=== PATIENT | female | born 1940 | race Caucasian/White ===

== ENCOUNTER 2018-07-10 12:36 | Observation (INO) | payer OTHER ==
--- NOTE | 2018-07-10 13:12 | CPEKG ---
Test Reason : OPEN Blood Pressure : / mmHG Vent. Rate : 068 BPM Atrial Rate : 069 BPM P-R Int : 185 ms QRS Dur : 081 ms QT Int : 399 ms P-R-T Axes : 044 012 030 degrees QTc Int : 425 ms Sinus rhythm Probable left atrial enlargement Confirmed by Prashant Reddy ([id number]) on 07/10/2018 1:11:46 PM Referred By: Confirmed By:Prashant Reddy
--- NOTE | 2018-07-10 13:14 | EDPHY ---
H & P Time Seen by Provider: 07/10/18 12:56 HPI/ROS: CHIEF COMPLAINT: Chest and arm heaviness HISTORY OF PRESENT ILLNESS: Patient has no previous history of venous thromboembolism or coronary disease. She had symptoms a day and half ago while she was walking around the house which lasted 5 min. This morning 1:30 a.m. She had recurrent symptoms and took an aspirin and went to sleep. Today she has had some on and off feeling of"indigestion"which comes and goes. At 1:30 a.m. This morning on the day before yesterday she had which she describes as heaviness in her arms and chest which made her feel"weak and panicky."Maybe a little bit of shortness of breath but no nausea and no cough. No leg swelling. Symptoms were mild in the happened and are currently not present. Today they came and went several times but never lasted more than 5 min. Not pleuritic and not definitely exertional. 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 No leg swelling. Skin: no rash Neuro: no headache Constitutional: no fever : no urinary symptoms A comprehensive 10 point review of systems is otherwise negative aside from elements mentioned in the history of present illness. PAST MEDICAL HISTORY: Negative for diabetes or hypertension. She says her" good cholesterol is high"but was not advise to take any statins by her primary care physician. Breast cancer with partial mastectomy, appendectomy, tonsillectomy. Cholesterol 228 on previous labs with elevated LDL. Family history: Negative for venous thromboembolism or coronary disease. Social history: Nonsmoker. No recent travel or immobilization. General Appearance: Alert and conversant, cooperative. Eyes: No scleral icterus. ENT, Mouth: Normal mucous membranes. Respiratory: Normal respiratory effort, breath sounds equal, lungs are clear to auscultation. Cardiovascular: Regular rate and rhythm. Gastrointestinal: Abdomen is soft and non tender. Neurological: Alert, face symmetric, normal motor and sensory in extremities. Skin: Warm and dry, no rashes. Musculoskeletal: No peripheral edema. No calf tenderness. Psychiatric: Not agitated. Emergency Department course/MDM: EKG shows no acute ischemic changes. Plan for D-dimer chest x-ray troponin. 1419: Results discussed, heart score for including 1 for history, 1 for risk factors, 2 for age. D-dimer is less than 0.1 times age, low risk for pulmonary embolism. Ilan 1419. Admit for risk stratification, patient agreeable. Had aspirin today at 1:30 a.m., not given in emergency department. Smoking Status: Never smoked Constitutional: Initial Vital Signs Temperature (C) 37.1 C 07/10/18 12:41 Heart Rate 81 07/10/18 12:41 Respiratory Rate 16 07/10/18 12:41 Blood Pressure 101/56 L 07/10/18 12:41 O2 Sat (%) 93 07/10/18 12:41 O2 Delivery Mode Room Air Allergies/Adverse Reactions: amoxicillin [From Augmentin] Allergy (Verified 07/10/18 12:40) ciprofloxacin [From Cipro] Allergy (Verified 07/10/18 12:40) clavulanic acid [From Augmentin] Allergy (Verified 07/10/18 12:40) codeine Allergy (Verified 07/10/18 12:40) sulfamethoxazole [From Bactrim] Allergy (Verified 07/10/18 12:40) trimethoprim [From Bactrim] Allergy (Verified 07/10/18 12:40) Home Medications: Medication Instructions Recorded Methenamine Mandel[place] 07/10/18 Ultracet Tablet 07/10/18 Medical Decision Making - Diagnostics EKG Interpretation: 12-lead EKG interpreted by me; official reading is in computer system. My interpretation is sinus rhythm rate 68 with left atrial enlargement and no acute ischemic changes. Imaging Results: Imaging Impressions Chest X-Ray 07/10/18 13:10 Impression: No acute findings in the chest. Differential Diagnosis: Differential diagnosis considered for chest pain including but not limited to myocardial ischemia, aortic dissection, pericarditis, pulmonary embolus, chest wall pain, pleural inflammation and pulmonary infectious causes. - Data Points Laboratory Results: Laboratory Results 07/10/18 13:32 07/10/18 13:32 07/10/18 07/10/18 07/10/18 13:37 13:32 13:32 WBC RBC Hgb Hct MCV MCH MCHC RDW Plt Count MPV Neut % (Auto) Lymph % (Auto) [place] % (Auto) Eos % (Auto) Baso % (Auto) Nucleat RBC Rel Count Absolute Neuts (auto) Absolute Lymphs (auto) Absolute Monos (auto) Absolute Eos (auto) Absolute Basos (auto) Absolute Nucleated RBC Immature Gran % Immature Gran # D-Dimer 0.54 ug/mLFEU H ug/mLFEU (0.00-0.50) Sodium 138 mEq/L mEq/L (135-145) Potassium 4.6 mEq/L mEq/L (3.3-5.0) Chloride 106 mEq/L mEq/L (97-110) Carbon Dioxide 25 mEq/l mEq/l (22-31) Anion Gap 7 mEq/L L mEq/L (8-16) BUN 23 mg/dL mg/dL (7-23) Creatinine 0.8 mg/dL mg/dL (0.6-1.0) Estimated GFR > 60 Glucose 108 mg/dL H mg/dL (70-100) Calcium 9.4 mg/dL mg/dL (8.5-10.4) POC Troponin I 0.02 ng/mL ng/mL (0.00-0.08) 07/10/18 13:32 WBC 7.04 10^3/uL 10^3/uL (3.80-9.50) RBC 4.29 10^6/uL 10^6/uL (4.18-5.33) Hgb 13.2 g/dL g/dL (12.6-16.3) Hct 39.3 % % (38.0-47.0) MCV 91.6 fL fL (81.5-99.8) MCH 30.8 pg pg (27.9-34.1) MCHC 33.6 g/dL g/dL (32.4-36.7) RDW 12.9 % % (11.5-15.2) Plt Count 142 10^3/uL L 10^3/uL (150-400) MPV 12.0 fL H fL (8.7-11.7) Neut % (Auto) 73.9 % % (39.3-74.2) Lymph % (Auto) 18.3 % % (15.0-45.0) [place] % (Auto) 6.4 % % (4.5-13.0) Eos % (Auto) 0.6 % % (0.6-7.6) Baso % (Auto) 0.4 % % (0.3-1.7) Nucleat RBC Rel Count 0.0 % % (0.0-0.2) Absolute Neuts (auto) 5.20 10^3/uL 10^3/uL (1.70-6.50) Absolute Lymphs (auto) 1.29 10^3/uL 10^3/uL (1.00-3.00) Absolute Monos (auto) 0.45 10^3/uL 10^3/uL (0.30-0.80) Absolute Eos (auto) 0.04 10^3/uL 10^3/uL (0.03-0.40) Absolute Basos (auto) 0.03 10^3/uL 10^3/uL (0.02-0.10) Absolute Nucleated RBC 0.00 10^3/uL 10^3/uL (0-0.01) Immature Gran % 0.4 % % (0.0-1.1) Immature Gran # 0.03 10^3/uL 10^3/uL (0.00-0.10) D-Dimer Sodium Potassium Chloride Carbon Dioxide Anion Gap BUN Creatinine Estimated GFR Glucose Calcium POC Troponin I Point of Care Test Results: Chemistry 07/10/18 13:37 POC Troponin I 0.02 ng/mL ng/mL (0.00-0.08) Departure - Departure Disposition: [facility] Inpatient Acute Clinical Impression: Chest pain Condition: Good Referrals: hCelsey Pratt MD [Primary Care Provider] - As per Instructions
[2018-07-10 13:44] LABS: PLATELET COUNT 142 10^3/uL (150-400)
[2018-07-10] MEDS ORDERED: ONDANSETRON DISINTEGRATING 4 MG TAB PO PRN (14:38)
[2018-07-10] MEDS ORDERED: ONDANSETRON 4 MG/2 ML VIAL IVP PRN (14:38)
[2018-07-10] MEDS ORDERED: ACETAMINOPHEN 325 MG TAB PO PRN (14:38)
--- NOTE | 2018-07-10 15:59 | ECHO ---
[email or web address] [address] Main: [phone] Fax: [email or web address] Echocardiogram Name: MARJORIE NAIR MR#: [id number] Study Date: 07/10/2018 Study Time: 03:04 PM Date of : 1940 Age: 78 year(s) Height: 162.6 cm (64 in.) Weight: 68.04 kg (150 lb.) BSA: 1.73 m2 Gender: Female Examination: Echo Indication: Chest Pain Image Quality: Adequate Contrast: Requested by: Josias Talavera BP: 113 mmHg/70 mmHg Heart Rate: Rhythm: Indication: Chest Pain Procedure Staff Border Inspector: Colette Torres [facility] Reading Physician: Denton Pike MD Requesting Provider: Conclusions: Normal size left ventricle. No LV hypertrophy. Normal global systolic LV function. EF is 65 %. No regional wall motion abnormality. Normal RV function. The left atrium is normal in size. The right atrium is normal in size. Right ventricular systolic pressure measures 25mmHg. Normal size ascending aorta measuring 3.4 cm. No pericardial effusion. Measurements: Chambers Valvular Assessment AV/MV Valvular Assessment TV/PV Normal Normal Normal Name Value Range Name Value Range Name Value Range IVSd (2D): 1.1 cm (0.6 cm-1.1 AV Vmax: 1.27 m/s (1 m/s-1.7 TR Vmax: 2.25 mm/s ( - ) cm) m/s) TR PGmax: 20 mmHg ( - ) LVDd (2D): 3.3 cm (3.9 cm-5.3 AV maxP mmHg ( - ) syst. PAP: 25 mmHg ( - ) cm) LVOT Vmax: 0.82 m/s (0.7 m/s-1.1 PV Vmax: 0.88 m/s (0.6 m/s-0.9 LVDs (2D): 2.3 cm (2.1 cm-4 m/s) m/s) cm) RAMÍREZ (Vmax): 1.8 cm2 ( - ) PV PGmax: 3 mmHg ( - ) LVPWd (2D): 0.9 cm ( - ) MV E Vmax: 0.57 m/s ( - ) LVOTd 1.9 cm 1.9 cm mm MV A Vmax: 0.56 m/s ( - ) LVEF (BP): 65 % (>=55 %) MV E/A: 1.02 ( - ) RVDd(2D): 3.3 cm (1.9 cm-3.8 cmmm) Continued Measurements: Chambers Valvular Assessment AV/MV Valvular Assessment TV/PV Patient: MARJORIE NAIR Study Date: 07/10/2018 Page 1 of 2 03:04 PM Name Value Name Value Name Value LADs Lon.5 cm MV DecTime: 275 m/s CVP (est.): 5 mmHg LA Area: 11.2 cm2 MV E/E' Septal: 8.30 LA Volume: 23 ml MV E/E' Lateral: 6.30 LA Volume Index: 13.3 ml/m2 TAPSE: 2.2 cm RA Area: 14.2 cm2 Additional Vessels Name Value Ao Ascendin.4 cm Findings: Left Ventricle: Normal size left ventricle. No LV hypertrophy. Normal global systolic LV function. EF is 65 %. No regional wall motion abnormality. Grade 1 diastolic dysfunction (abnormal relaxation). Right Ventricle: Normal size right ventricle. Normal RV function. Left Atrium: The left atrium is normal in size. Right Atrium: The right atrium is normal in size. Mitral Valve: The mitral valve is normal in appearance and function. Trivial mitral valve regurgitation. No mitral stenosis is present. Aortic Valve: The aortic valve is normal in appearance and function. The aortic valve is tri-leaflet. Trivial aortic valve regurgitation. No aortic valve stenosis is present. Tricuspid Valve: The tricuspid valve is normal in appearance and function. Trivial to mild tricuspid valve regurgitation. Right ventricular systolic pressure measures 25mmHg. The pulmonary artery pressure is normal. Pulmonic Valve: The pulmonic valve is normal in appearance and function. Trivial pulmonic valve regurgitation. Aorta: Normal size aortic root. Normal size ascending aorta measuring 3.4 cm. IVC: Normal size and course of the IVC. Pericardium: No pericardial effusion. (No Signature Object) Patient: MARJORIE NAIR Study Date: 07/10/2018 Page 2 of 2 03:04 PM [id number]
[2018-07-10] MEDS ORDERED: NS 1,000 ML IV SCH (16:30)
--- NOTE | 2018-07-10 16:37 | PDGENHP ---
History and Physical - Chief Complaint chest pain - History of Present Illness 78 yo female with hx of HLD p/w intermittent chest pain since yesterday. Not exertional. reports some indigestion. denies hx of HTN, DMI. non smoker. no fm hx. no obesity. No SOB, palpitations, or leg swelling. Afebrile. no cough. no hx of asthma She took an aspirin today and called her doctor who sent her to the ED. In the ED, EKG is unremarkable. Trop is negative. D-Dimer is slightly elevated. PAST MEDICAL HISTORY: Negative for diabetes or hypertension. HLD Family history: Negative for venous thromboembolism or coronary disease. Social history: Nonsmoker. No recent travel or immobilization. History Information - Allergies/Home Medication List Allergies/Adverse Reactions: amoxicillin [From Augmentin] Allergy (Verified 07/10/18 14:57) Other-Enter Comments ciprofloxacin [From Cipro] Allergy (Verified 07/10/18 14:57) Other-Enter Comments clavulanic acid [From Augmentin] Allergy (Verified 07/10/18 12:40) codeine Allergy (Verified 07/10/18 12:40) sulfamethoxazole [From Bactrim] Allergy (Verified 07/10/18 14:57) Other-Enter Comments trimethoprim [From Bactrim] Allergy (Verified 07/10/18 12:40) Home Medications: Herbals/Supplements -Info Only 1 ea PO DAILY 07/10/18 [Last Taken Unknown] Methenamine Catarino [Hiprex 1 gm (*)] 1 gm PO HS 07/10/18 [Last Taken 07/09/18] traMADol HCL/ACETAMINOPHEN [Ultracet Tablet] 1 each PO BID 07/10/18 [Last Taken 07/10/18 AM] I have personally reviewed and updated: medical history, social history - Social History Smoking Status: Never smoked Review of Systems Review of Systems: ROS: 10pt was reviewed & negative except for what was stated in HPI & below Physical Exam Physical Exam: Temp Pulse Resp BP Pulse Ox 36.9 C 80 19 128/78 H 92 07/10/18 16:00 07/10/18 16:00 07/10/18 16:00 07/10/18 16:00 07/10/18 16:00 Constitutional: no apparent distress Eyes: PERRL, EOMI Ears, Nose, Mouth, Throat: moist mucous membranes, hearing normal Cardiovascular: regular rate and rhythym, No edema Respiratory: no respiratory distress, no rales or rhonchi, clear to auscultation Gastrointestinal: normoactive bowel sounds, soft, non-tender abdomen Skin: warm Musculoskeletal: full muscle strength Neurologic: AAOx3 Psychiatric: interacting appropriately, not anxious, not encephalopathic Lymph, Heme, Immunologic: No petechiae Lab Data & Imaging Review 07/10/18 13:32 07/10/18 13:32 WBC 7.04 10^3/uL (3.80-9.50) 07/10/18 13:32 RBC 4.29 10^6/uL (4.18-5.33) 07/10/18 13:32 Hgb 13.2 g/dL (12.6-16.3) 07/10/18 13:32 Hct 39.3 % (38.0-47.0) 07/10/18 13:32 MCV 91.6 fL (81.5-99.8) 07/10/18 13:32 MCH 30.8 pg (27.9-34.1) 07/10/18 13:32 MCHC 33.6 g/dL (32.4-36.7) 07/10/18 13:32 RDW 12.9 % (11.5-15.2) 07/10/18 13:32 Plt Count 142 10^3/uL (150-400) L 07/10/18 13:32 MPV 12.0 fL (8.7-11.7) H 07/10/18 13:32 Neut % (Auto) 73.9 % (39.3-74.2) 07/10/18 13:32 Lymph % (Auto) 18.3 % (15.0-45.0) 07/10/18 13:32 [place] % (Auto) 6.4 % (4.5-13.0) 07/10/18 13:32 Eos % (Auto) 0.6 % (0.6-7.6) 07/10/18 13:32 Baso % (Auto) 0.4 % (0.3-1.7) 07/10/18 13:32 Nucleat RBC Rel Count 0.0 % (0.0-0.2) 07/10/18 13:32 Absolute Neuts (auto) 5.20 10^3/uL (1.70-6.50) 07/10/18 13:32 Absolute Lymphs (auto) 1.29 10^3/uL (1.00-3.00) 07/10/18 13:32 Absolute Monos (auto) 0.45 10^3/uL (0.30-0.80) 07/10/18 13:32 Absolute Eos (auto) 0.04 10^3/uL (0.03-0.40) 07/10/18 13:32 Absolute Basos (auto) 0.03 10^3/uL (0.02-0.10) 07/10/18 13:32 Absolute Nucleated RBC 0.00 10^3/uL (0-0.01) 07/10/18 13:32 Immature Gran % 0.4 % (0.0-1.1) 07/10/18 13:32 Immature Gran # 0.03 10^3/uL (0.00-0.10) 07/10/18 13:32 D-Dimer 0.54 ug/mLFEU (0.00-0.50) H 07/10/18 13:32 Sodium 138 mEq/L (135-145) 07/10/18 13:32 Potassium 4.6 mEq/L (3.3-5.0) 07/10/18 13:32 Chloride 106 mEq/L (97-110) 07/10/18 13:32 Carbon Dioxide 25 mEq/l (22-31) 07/10/18 13:32 Anion Gap 7 mEq/L (8-16) L 07/10/18 13:32 BUN 23 mg/dL (7-23) 07/10/18 13:32 Creatinine 0.8 mg/dL (0.6-1.0) 07/10/18 13:32 Estimated GFR > 60 07/10/18 13:32 Glucose 108 mg/dL (70-100) H 07/10/18 13:32 Hemoglobin A1c 5.1 % (4.0-6.0) 07/10/18 14:52 Estim Average Glucose 100 mg/dL (68-126) 07/10/18 14:52 Calcium 9.4 mg/dL (8.5-10.4) 07/10/18 13:32 POC Troponin I 0.02 ng/mL (0.00-0.08) 07/10/18 13:37 Troponin I < 0.012 ng/mL (0.000-0.034) 07/10/18 14:52 Assessment & Plan Assessment: #Chest Pain, likely Atypica -Does not appear to be cardiac -Heart Score: 3 (2 for age, 1 for HLD. none for hx) -I ordered a TTE and this is unremarkable -Given her elevated D-dimer and non specific sx's, I will check a CTA of chest -telemetry, cardiac enzymes (negative thus far) -non of her sx's are exertional, I have not ordered a stress test but a treadmill once can be ordered tomorrow if still symptomatic and w/u negative -will do a trial of PPI -check risk factors #HLD: cont statin #mildly elevated D-Dimer #Mild thrombocytopenia SCD Full Code
[2018-07-10] MEDS: PANTOPRAZOLE SODIUM 40 MG TAB PO SCH (16:46)
[2018-07-10] MEDS ORDERED: IOPAMIDOL (ISOVUE 370) 100 ML BTL IV ONE (17:30)
[2018-07-10] MEDS: traMADol 50 MG TAB PO SCH (20:50)
[2018-07-10] MEDS: ACETAMINOPHEN 325 MG TAB PO SCH (20:51)
[2018-07-10] MEDS ORDERED: METHENAMINE HIPP 1 GM TAB PO SCH (21:00)
[2018-07-10] MEDS ORDERED: MELATONIN 3 MG TAB PO SCH (21:00)
[2018-07-11 03:53] VITALS: BP 90/51
[2018-07-11 04:13] LABS: PLATELET COUNT 110 10^3/uL (150-400)
[2018-07-11] MEDS: ACETAMINOPHEN 325 MG TAB PO SCH (10:12)
[2018-07-11] MEDS: traMADol 50 MG TAB PO SCH (10:13)
[2018-07-11] MEDS: PANTOPRAZOLE SODIUM 40 MG TAB PO SCH (10:13)
--- NOTE | 2018-07-11 18:23 | GDS ---
PRIMARY CARE PROVIDER: Dr. Chelsey Pratt. DISCHARGE DIAGNOSIS: Noncardiac chest pain. HISTORY OF PRESENT ILLNESS: The patient is a pleasant 78-year-old female with a past medical history of hyperlipidemia, who presented to the [facility] Emergency Room after developing c hest pain on 2 occasions on the day of admission. Her initial ECG that showed normal sinus rhythm wi thout any T-wave inversions or ST-segment changes. Her initial troponin was also negative, and she w as admitted for observation and serial troponins. Her troponins were negative x3, and she did not de velop any recurrent chest pain. She did have a mildly elevated D-dimer at 0.50, so had a CT angiogra phy of her chest performed, which did not show any evidence of a pulmonary embolism. An echocardiogr am was additionally obtained, which did not show any wall motion abnormalities and normal systolic le ft ventricular function with an estimated ejection fraction at 65%. It was felt the patient's chest pain complaints could be even related to esophageal reflux. We discussed a trial of PPI therapy, but at this point in time since she has only had 1 day of chest discomfort that we would follow for now with a backup plan if it recurs to obtain Prilosec [id number] and start taking on daily basis. She was agreeable to this plan. EXAM: VITAL SIGNS: On day of discharge, temperature 36.4, blood pressure 90/51, heart rate 56, resp irations 16, saturating 98% on room air. GENERAL: Patient appeared comfortable. She was awake, alberto rt, conversant, no acute distress. HEART: Regular rate and rhythm. No murmurs. LUNGS: Clear to a uscultation with normal respiratory effort. ABDOMEN: Soft, nontender, nondistended. : No Armas catheter in place. EXTREMITIES: No significant pitting edema or calf pain with palpation. Notable studies as detailed above. DISCHARGE MEDICATIONS: In short, no medication changes were made during this hospitalization. 1. Methenamine 1 tablet nightly. 2. Tramadol 1 tablet twice a day. DISCHARGE INSTRUCTIONS: I have recommended she keep her followup which was already scheduled with a new primary care provider, Dr. Chelsey Pratt, this coming Friday. Outpatient cardiology consultat ion with outpatient stress testing could be considered, but I will defer to her new primary provider. 30 minutes time dedicated to discharge efforts. /[id number]/MODL
--- NOTE | 2018-07-12 10:07 | ASMTLACE ---
LACE Length of stay for Answers: Less than 1 day current admission Acuity / Level of Answers: No Care: Did the patient have an inpatient admission? Comorbidities - select Answers: Other Notes: HLD all that apply # of Emergency department Answers: 1-2 visits in the last 6 months Score: 2 Date Signed: 07/12/2018 10:07 AM Electronically Signed By:Cassie Kramer RN
--- NOTE | 2018-07-12 10:11 | ASDISCHSUM ---
Discharge Information Plan Status:Home with No Needs Medically Cleared to Leave:07/11/2018 Discharge Date:07/11/2018 01:26 PM CM D/C Disposition:Home, Routine, Self-Care ADT D/C Disposition:Home, Routine, Self-Care Projected Discharge Date:07/11/2018 01:26 PM Transportation at D/C:Family Discharge Delay Reason: Follow-Up Date:07/11/2018 01:26 PM Discharge Slot:2 - 12:01 pm - 18:00 pm Final Diagnosis:Chest pain Placement Information Patient Contact Information Contact Name:TRELL Relationship: Address:[address] City:[place] Alternate Phone: [facility]/Zip Code:[place] [address] Email: Financial Information Financial Class:Medicare Primary Plan Desc:MEDICARE OUTPATIENT Primary Plan Number:[id number] Secondary Plan Desc:[employer] Secondary Plan Number:[id number] Assessment Information LACE LACE Length of stay for Answers: Less than 1 day current admission Acuity / Level of Answers: No Care: Did the patient have an inpatient admission? Comorbidities - select Answers: Other Notes: HLD all that apply # of Emergency department Answers: 1-2 visits in the last 6 months Score: 2 Date Signed: 07/12/2018 10:07 AM Electronically Signed By:Cassie Kramer RN [facility] CM Progress Note CM Note CM Note Notes: Note for Friday07/11/18, late entry - [employer] down for maintenance Friday afternoon/evening Reviewed chart, spoke with DONA Jackson regarding discharge plan of care, pt's progress. Pt admitted with chest pain. History includes HLD. Pt lives with her . Per Renetta, pt to discharge home independently with no identified needs. IM/UNGER forms not signed, pt discharged prior to signing. Pt to follow up as directed. CM available for any further issues or concerns. Discharge Plan: Home independently Date Signed: 07/12/2018 10:10 AM Electronically Signed By:Cassie Kramer RN Intervention Information Intervention Type:UNGER-Not Delivered Date of Service:07/12/2018 10:10 AM Patient Type:Observation Staff Member:DONA Kramer Taylor Hours: Discipline: Severity: Comment:Pt discharged prior to signing Intervention Type:IM-Pt. Not Available Date of Service:07/12/2018 10:10 AM Patient Type:Observation Staff Member:DONA Kramer Taylor Hours: Discipline: Severity: Comment:Pt discharged prior to signing
== END 2018-07-11 13:26 | disposition home or self-care (01) ==
LOC: F2W 15:30
PROVIDERS: ADMIT Family Medicine; ATTEND Family Medicine
DX: R07.89 Other chest pain (principal); M54.41 Lumbago with sciatica, right side; E78.5 Hyperlipidemia, unspecified; R79.89 Other specified abnormal findings of blood chemistry
CPT/HCPCS: 71046; 71275; 93005; 93306; 99285; G0378; Q9967; 84484-PO